=== PATIENT | female | born 1995 | race African-American/Black ===

== ENCOUNTER 2023-09-30 15:54 | Emergency (ER) | payer BC ==
[~2023-09-30] VITALS: Ht 160 cm; Wt 56.7 kg
[2023-09-30 16:00] VITALS: O2SAT 99
[2023-09-30] MEDS ORDERED: BUPRENORPHINE HCL 2 MG TAB.SUBL SL ONE ×2 (17:25→17:30)
== END 2023-09-30 18:53 | disposition home or self-care (01) ==
LOC: ER 15:57
DX: F11.23 Opioid dependence with withdrawal (principal)
CPT/HCPCS: A4606; A4663